=== PATIENT | female | born 1960 | race Caucasian/White ===

== ENCOUNTER 2021-01-04 15:49 | Observation (INO) | payer MEDICAID ==
[~2021-01-04] VITALS: Ht 160 cm; Wt 110.4 kg
[2021-01-04] MEDS ORDERED: IV NORMAL SALINE 1000ML BAG 1,000 ML IV ONE (16:00)
--- NOTE | 2021-01-04 16:25 | PHYS DOC ---
General Adult HPI: HPI: Patient is a 60 year old female who presents with was going to her granddaughters graduation today when they got in the building and had to walk all the way around the building. As they are walking around the building she became very short of breath, lost her color and turned white, lightheaded and almost passed out but did not. She denies chest pain, abdominal pain, nausea, vomiting, diarrhea, dizziness, vision change, new weaknesses, cough, headache. 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 She also has residual right-sided deficit. She also has hypertension. She has factor V. She is on Coumadin. Patient states she is feeling better since her arrival. Review of Systems: Review of Systems: Constitutional: Denies fever or chills. [] Eyes: Denies change in visual acuity. [] HENT: Denies nasal congestion or sore throat. [] Respiratory: Denies cough or +shortness of breath. [] Cardiovascular: Denies chest pain or edema. [] GI: Denies abdominal pain, nausea, vomiting, bloody stools or diarrhea. [] : Denies dysuria. [] Musculoskeletal: Denies back pain or joint pain. [] Integument: Denies rash. [] Neurologic: Denies headache, focal weakness or sensory changes. + Lightheadedness [] Endocrine: Denies polyuria or polydipsia. [] Lymphatic: Denies swollen glands. [] Psychiatric: Denies depression or anxiety. [] Heart Score: C/O Chest Pain: No HEART Score for Chest Pain: HEART Score for Chest Pain Response (Comments) Value History Slighlty/Non-Suspicious 0 ECG Nonspecific Repolarizatio 1 Age >45 - < 65 1 Risk Factors 1 or 2 Risk Factors 1 Troponin < Normal Limit 0 Total 3 Risk Factors: Risk Factors: DM, Current or recent (<one month) smoker, HTN, HLP, family history of CAD, obesity. Risk Scores: Score 0 - 3: 2.5% MACE over next 6 weeks - Discharge Home Score 4 - 6: 20.3% MACE over next 6 weeks - Admit for Clinical Observation Score 7 - 10: 72.7% MACE over next 6 weeks - Early Invasive Strategies Current Medications: Current Medications Medications (Trade) Dose Ordered Sig/Krystle Start Time Stop Time Status Last Admin Dose Admin Sodium Chloride 1,000 ml @ 1,000 mls/hr 1X ONCE 01/04/21 16:00 01/04/21 16:59 UNV Physical Exam: PE: Constitutional: Well developed, well nourished, no acute distress, non-toxic appearance. [] HENT: Normocephalic, atraumatic, bilateral external ears normal, oropharynx moist, no oral exudates, nose normal. [] Eyes: PERRLA, EOMI, conjunctiva normal, no discharge. [] Neck: Normal range of motion, no tenderness, supple, no stridor. [] Cardiovascular:Heart rate regular rhythm, no murmur [] Lungs & Thorax: Bilateral breath sounds clear to auscultation [] Abdomen: Bowel sounds normal, soft, no tenderness, no masses, no pulsatile masses. [] Skin: Warm, dry, no erythema, no rash. [] Back: No tenderness, no CVA tenderness. [] Extremities: No tenderness, no cyanosis, no clubbing, ROM intact, no edema. [] Neurologic: Alert and oriented X 3, normal motor function, normal sensory function, no focal deficits noted. [] Psychologic: Affect normal, judgement normal, mood normal. Normal physical exam [] EKG: EK and read by Dr. Joseph is sinus rhythm and no STEMI Radiology/Procedures: Radiology/Procedures: [] Impression: [facility] [address] [place], [place] [id number] IMAGING REPORT Signed PATIENT: JOSH ARMAS ACCOUNT: [id number] : 1960 LOCATION: ER AGE: 60 SEX: F EXAM STATUS: PRE ER ORD. PHYSICIAN: PRITI NAVAS ASSEMBLER CONVERTIBLE TOP REASON: syncope PROCEDURE: CT HEAD WO CONTRAST Chest AP portable at 1639: Reason for examination: Syncope. The heart size is normal. Mediastinum is unremarkable. Lung baker are clear. No acute bony abnormalities are seen. Impression: No acute cardiopulmonary disease. CT head without contrast: Helical images were obtained through the brain with no contrast administered. Exposure: One or more of the following individualized dose reduction techniques were utilized for this examination: 1. Automated exposure control 2. Adjustment of the mA and/or kV according to patient size 3. Use of iterative reconstruction technique. There are changes consistent with encephalomalacia in the left frontal and left parietal lobe anteriorly. There is some compensatory enlargement of the left lateral ventricular system. There is no midline shift. There is no evidence of intracranial hemorrhage, acute infarct, mass or edema. No abnormalities of seen at the orbits. The paranasal sinuses and mastoid air cells are clear. No acute skull abnormality is seen. IMPRESSION: Encephalomalacia involving the left frontal and anterior parietal lobe. No acute intracranial abnormality evident. Electronically signed by: Jose Medeiros MD (01/04/2021 4:48 PM) [facility] DICTATED and SIGNED BY: JOSE MEDEIROS MD DATE: 01/04/21 [id number] 0 Course & Med Decision Making: Course & Med Decision Making Pertinent Labs and Imaging studies reviewed. (See chart for details) See HPI. Alert and oriented x4. Ambulatory with a steady gait. Speaks in full sentences. Daughter states that the patient is acting normal for her at this time. Lungs are clear all station all lobes. EKG shows a sinus rhythm and no STEMI. Patient states she is feeling better. Patient's NIH is a 5 but it is normal for her. Patient states she is feeling better. Blood work and CT of head and chest x-ray showed no acute findings. Using shared decision making between me, the patient and her daughter patient has decided to stay for observation. Patient admitted to Dr Worthy. [] Jenny Disclaimer: Jenny Disclaimer: This electronic medical record was generated, in whole or in part, using a voice recognition dictation system. NIHSS Stroke Scale NIH Stroke Scale: NIH Stroke Scale Response (Comments) Value Level of Consciousness: 0 Alert/Responsive 0 LOC Questions: 0 Answers both correctly 0 LOC Commands: 0 Performs both tasks 0 Best Gaze: 0 Normal 0 Visual: 0 No visual loss 0 Facial Palsy: 0 Normal, symmetrical 0 Motor - Left Arm 0 No drift 0 Motor - Right Arm 2 Some effort (normal for patient) 2 Motor - Left Leg 0 No drift 0 Motor: Right Leg 1 Drift but can hold 1 Limb Ataxia: 0 Absent 0 Sensory: 0 No loss 0 Best Language: 1 Mild to mod aphasia (normal for patien t) 1 Dysathria: 1 Mild to moderate (normal for patient) 1 Extinction and Inattention: 0 Normal 0 Total 5 Departure Departure Impression: Primary Impression: Near syncope Disposition: ADMITTED INPATIENT Admitting Physician: SARA Condition: STABLE PRITI NAVAS ASSEMBLER CONVERTIBLE TOP January 04, 2021 16:25
[2021-01-04 16:29] LABS: BASO # 0.1 x10^3/uL (0.0-0.2); BASO % 1 % (0-3); EOS # 0.2 x10^3/uL (0.0-0.7); EOS % 3 % (0-3); HEMATOCRIT 36.8 % (36.0-47.0); HEMOGLOBIN 12.7 g/dL (12.0-15.5); LYMPH # 1.5 x10^3/uL (1.0-4.8); LYMPH % 22 % (24-48); MEAN CORPUSCULAR HEMOGLOBIN 31 pg (25-35); MEAN CORPUSCULAR HGB CONC 34 g/dL (31-37); MEAN CORPUSCULAR VOLUME 89 fL (79-100); MONO # 0.5 x10^3/uL (0.0-1.1); MONO % 7 % (0-9); NEUT # 4.5 x10^3/uL (1.8-7.7); NEUT % 67 % (31-73); PLATELET COUNT 164 x10^3/uL (140-400); RED BLOOD COUNT 4.14 x10^6/uL (3.50-5.40); RED CELL DISTRIBUTION WIDTH 14.6 % (11.5-14.5); WHITE BLOOD COUNT 6.6 x10^3/uL (4.0-11.0)
[2021-01-04 16:40] LABS: CALCIUM 8.1 mg/dL (8.5-10.1); GFR 56.9; POTASSIUM 4.2 mmol/L (3.5-5.1)
[2021-01-04 16:46] LABS: ALBUMIN 4.2 g/dL (3.4-5.0); ALBUMIN/GLOBULIN RATIO 1.8 (1.0-1.7); TOTAL BILIRUBIN 0.6 mg/dL (0.2-1.0); TOTAL PROTEIN 6.6 g/dL (6.4-8.2)
--- NOTE | 2021-01-04 16:50 | RAD ---
Chest AP portable at 1639: Reason for examination: Syncope. The heart size is normal. Mediastinum is unremarkable. Lung baker are clear. No acute bony abnormali ties are seen. Impression: No acute cardiopulmonary disease. CT head without contrast: Helical images were obtained through the brain with no contrast administered. Exposure: One or more of the following individualized dose reduction techniques were utilized for thi s examination: 1. Automated exposure control 2. Adjustment of the mA and/or kV according to patient size 3. Use of iterative reconstruction technique. There are changes consistent with encephalomalacia in the left frontal and left parietal lobe anterio rly. There is some compensatory enlargement of the left lateral ventricular system. There is no midli ne shift. There is no evidence of intracranial hemorrhage, acute infarct, mass or edema. No abnormali ties of seen at the orbits. The paranasal sinuses and mastoid air cells are clear. No acute skull abn ormality is seen. IMPRESSION: Encephalomalacia involving the left frontal and anterior parietal lobe. No acute intracranial abnorma lity evident. Electronically signed by: Bernice Isaac MD (01/04/2021 4:48 PM) [facility]
[2021-01-04 18:12] LABS: BILIRUBIN,URINE NEGATIVE (NEG); CLARITY,URINE CLEAR; COLOR,URINE YELLOW; NITRITE,URINE NEGATIVE (NEG); PROTEIN,URINE NEGATIVE (NEG-TRACE); UROBILINOGEN,URINE 0.2 mg/dL (0.2 mg/dL)
[2021-01-04 18:16] LABS: BACTERIA,URINE 0 /HPF (0-FEW); RBC,URINE 0 /HPF (0-2)
--- NOTE | 2021-01-04 19:40 | EKG ---
[facility] [address] [place] [address] Test Date: 2021-01-04 Test Time: 16:01:34 Pat Name: JOSH ARMAS Department: Room: Gender: F Template Clerk: : 1960 Requested By: PRITI NAVAS Order Number: [id number] Reading MD: Measurements Intervals Paicines Rate: 81 P: 66 HI: 154 QRS: 23 QRSD: 84 T: 41 QT: 374 QTc: 435 Interpretive Statements SINUS RHYTHM NORMAL ECG RI6.02 No previous ECG available for comparison
[2021-01-04 20:45] VITALS: BP 196/96
--- NOTE | 2021-01-04 21:00 | NUR ---
Admit from ER via [facility] to [facility] room 261. A/O x 4 on arrival to unit. Stood from [facility] in lan and ambulated to bathroom in room and then to bed with standby assist. Patient has history of CVA at age [age] years old with right arm and right leg deficit. Orientated to room and call light. Reviewed POC to include tele monitoring and out of bed with standby assist. Verbalized understanding. Resting in bed talking to family on her cell phone. Call light at hand.
[2021-01-04] MEDS ORDERED: PREG300C PO (21:14)
[2021-01-04] MEDS ORDERED: WARF2.5T71 PO (21:16)
[2021-01-04] MEDS ORDERED: WARF-31 PO (21:17)
[2021-01-04] MEDS ORDERED: LORA0.5T96 PO (21:21)
[2021-01-04] MEDS ORDERED: SIMV20TA18 PO (21:22)
[2021-01-04] MEDS ORDERED: LOSA-73 PO (21:22)
[2021-01-04] MEDS ORDERED: OMEP40CA45 PO (21:22)
[2021-01-04] MEDS ORDERED: TIZA4TAB8 PO (21:23)
[2021-01-04] MEDS ORDERED: LORazepam 0.5 MG TABLET PO PRN (22:00)
[2021-01-04] MEDS ORDERED: tiZANidine 4 MG TABLET. PO PRN (22:00)
[2021-01-04] MEDS ORDERED: SIMVASTATIN 20 MG TABLET PO SCH (22:00)
[2021-01-04] MEDS ORDERED: LABETALOL 20 MG/4 ML DISP.SYRIN. IVP PRN (22:00)
[2021-01-04 22:45] VITALS: BP 175/72
[2021-01-04] MEDS: PREGABALIN 75 MG CAPSULE PO SCH (23:00)
[2021-01-04 23:30] LABS: PROTHROMBIN TIME PATIENT 20.1 SEC (11.7-14.0)
[2021-01-04] MEDS ORDERED: WARFARIN 5 MG TABLET. PO ONE (23:45)
[2021-01-05 03:20] VITALS: BP 108/52
--- NOTE | 2021-01-05 06:52 | PDOC1 ---
History and Physical Date of Admission Date of Admission DATE: 01/05/21 TIME: 06:35 Identification/Chief Complaint Chief Complaint Near syncope Source Source: Chart review, Patient History of Present Illness History of Present Illness Patient is a 60-year-old female with past medical history CVA secondary to factor V Leiden and residual right-sided deficits, presents to the ED for evaluation of a near syncopal event. Her symptoms occurred yesterday at her granddaughter's graduation, where prior to onset congested on a great deal of walking. She reportedly, turned white, became lightheaded, and almost passed out but did did not lose consciousness. She denies any head injury, chest pain, abdominal pain, nausea, vomiting, diarrhea, dizziness, vision change, or new weaknesses. Upon arrival in the ED, EKG showed normal sinus rhythm. She was admitted overnight for further observation. Past Medical History Past Medical History CVA, factor V Leiden, HTN, HLD, anxiety Past Surgical History Past Surgical History: Appendectomy Family History Family History: Hypertension Current Problem List Problem List Problems Medical Problems: (1) Near syncope Status: Acute Current Medications Current Medications Current Medications Sodium Chloride 1,000 ml @ 1,000 mls/hr 1X ONCE IV Last administered on 01/04/21at 17:08; Start 01/04/21 at 16:00; Stop 01/04/21 at 16:59; Status DC Lorazepam (Ativan) 0.5 mg PRN TID PRN PO ANXIETY / AGITATION; Start 01/04/21 at 22:00 Losartan Potassium (Cozaar) 50 mg DAILY PO ; Start 01/05/21 at 09:00 Simvastatin (Zocor) 20 mg HS PO Last administered on 01/04/21at 23:00; Start 01/04/21 at 22:00 Tizanidine HCl (Zanaflex) 4 mg PRN TID PRN PO MUSCLE SPASMS Last administered on 01/04/21at 23:00; Start 01/04/21 at 22:00 Pantoprazole Sodium (Protonix) 40 mg DAILYAC PO ; Start 01/05/21 at 07:30 Pregabalin (Lyrica) 300 mg BID PO Last administered on 01/04/21at 23:00; Start 01/04/21 at 22:00 Labetalol HCl (Normodyne Iv Push) 10 mg PRN Q2HRS PRN IVP HYPERTENSION; Start 01/04/21 at 22:00 Warfarin Sodium (Coumadin) 2.5 mg DAILY PO ; Start 01/05/21 at 09:00; Stop 01/04/21 at 23:29; Status DC Warfarin Sodium (Coumadin) 5 mg SuMoWeThSa PO ; Start 01/05/21 at 16:00 Warfarin Sodium (Coumadin) 2.5 mg TuFr PO ; Start 01/06/21 at 16:00 Warfarin Sodium (Coumadin) 5 mg 1X WARF ONCE PO Last administered on 01/04/21at 23:46; Start 01/04/21 at 23:45; Stop 01/04/21 at 23:46; Status DC Warfarin Sodium (Coumadin Per Physician) 1 each PRN DAILY PRN MC SEE COMMENTS Last administered on 01/05/21at 02:12; Start 01/04/21 at 23:45 Active Scripts Active Reported Zanaflex (Tizanidine Hcl) 4 Mg Tablet 4 Mg PO TID PRN Losartan Potassium 50 Mg Tablet 50 Mg PO DAILY Simvastatin 20 Mg Tablet 20 Mg PO HS Omeprazole 40 Mg Capsule.dr 40 Mg PO DAILY Ativan (Lorazepam) 0.5 Mg Tablet 0.5 Mg PO TID PRN Warfarin Sodium 5 Mg Tablet 5 Mg PO M, W, TH, SAT, SUN Coumadin 5mg Tuesday, Tuesday, , Tuesday, Tuesday Warfarin Sodium 2.5 Mg Tablet 2.5 Mg PO TUESDAY, TUESDAY Coumadin 2.5 mg Tuesday and Fridays Lyrica (Pregabalin) 300 Mg Capsule 300 Mg PO BID Allergies Allergies: Coded Allergies: No Known Drug Allergies (Unverified , 01/04/21) ROS Review of System GENERAL: No history of weight change, weakness or fevers. SKIN: No bruising, hair changes or rashes. EYES: No blurred, double or loss of vision. NOSE AND THROAT: No history of nosebleeds, hoarseness or sore throat. HEART: Near syncope, lightheadedness. Denies chest pain, denies palpitations. LUNGS: Denies cough, hemoptysis, wheezing or shortness of breath. GASTROINTESTINAL: Denies nausea, vomiting, abdominal pain. GENITOURINARY: Denies dysuria, frequency, urgency, hematuria. NEUROLOGIC: Residual right-sided weakness 3/5. Denies history of numbness, tingling, or tremor. PSYCHIATRIC: Denies anxiety, denies depression. ENDOCRINE: No history of heat or cold intolerance, polyuria or polydipsia. EXTREMITIES: Denies muscle weakness, joint pain, pain on walking or stiffness. Physical Exam Physical Exam General: Alert, Oriented X3, Cooperative, No acute distress HEENT: PERRLA, EOMI Lungs: Clear to auscultation, Normal air movement Heart: RRR, no murmurs Cardiovascular: S1, S2 Abdomen: Normal bowel sounds, Soft, No tenderness Extremities: No clubbing, No cyanosis Skin: No rashes, No significant lesion Neuro: Slurred speech, right-sided weakness. Normal tone, Sensation intact Psych/Mental Status: Mental status NL, Mood NL Vitals Vitals Vital Signs Date Time Temp Pulse Resp B/P (MAP) Pulse Ox O2 Delivery O2 Flow Rate FiO2 01/05/21 03:20 98.0 104 18 108/52 (70) 94 Room Air 98.0 Labs Labs Laboratory Tests Test 01/04/21 16:15 01/04/21 17:56 01/04/21 23:15 White Blood Count 6.6 x10^3/uL (4.0-11.0) Red Blood Count 4.14 x10^6/uL (3.50-5.40) Hemoglobin 12.7 g/dL (12.0-15.5) Hematocrit 36.8 % (36.0-47.0) Mean Corpuscular Volume 89 fL (79-100) Mean Corpuscular Hemoglobin 31 pg (25-35) Mean Corpuscular Hemoglobin Concent 34 g/dL (31-37) Red Cell Distribution Width 14.6 % (11.5-14.5) Platelet Count 164 x10^3/uL (140-400) Neutrophils (%) (Auto) 67 % (31-73) Lymphocytes (%) (Auto) 22 % (24-48) Monocytes (%) (Auto) 7 % (0-9) Eosinophils (%) (Auto) 3 % (0-3) Basophils (%) (Auto) 1 % (0-3) Neutrophils # (Auto) 4.5 x10^3/uL (1.8-7.7) Lymphocytes # (Auto) 1.5 x10^3/uL (1.0-4.8) Monocytes # (Auto) 0.5 x10^3/uL (0.0-1.1) Eosinophils # (Auto) 0.2 x10^3/uL (0.0-0.7) Basophils # (Auto) 0.1 x10^3/uL (0.0-0.2) Sodium Level 144 mmol/L (136-145) Potassium Level 4.2 mmol/L (3.5-5.1) Chloride Level 107 mmol/L (98-107) Carbon Dioxide Level 25 mmol/L (21-32) Anion Gap 12 (6-14) Blood Urea Nitrogen 8 mg/dL (7-20) Creatinine 1.0 mg/dL (0.6-1.0) Estimated GFR (Cockcroft-Gault) 56.9 BUN/Creatinine Ratio 8 (6-20) Glucose Level 90 mg/dL (70-99) Calcium Level 8.1 mg/dL (8.5-10.1) Total Bilirubin 0.6 mg/dL (0.2-1.0) Aspartate Amino Transf (AST/SGOT) 14 U/L (15-37) Alanine Aminotransferase (ALT/SGPT) 20 U/L (14-59) Alkaline Phosphatase 79 U/L (46-116) Troponin I Quantitative < 0.017 ng/mL (0.000-0.055) Total Protein 6.6 g/dL (6.4-8.2) Albumin 4.2 g/dL (3.4-5.0) Albumin/Globulin Ratio 1.8 (1.0-1.7) Urine Collection Type Unknown Urine Color Yellow Urine Clarity Clear Urine pH 6.0 (<5.0-8.0) Urine Specific Orange <=1.005 (1.000-1.030) Urine Protein Negative mg/dL (NEG-TRACE) Urine Glucose (UA) Negative mg/dL (NEG) Urine Ketones (Stick) Negative mg/dL (NEG) Urine Blood Negative (NEG) Urine Nitrite Negative (NEG) Urine Bilirubin Negative (NEG) Urine Urobilinogen Dipstick 0.2 mg/dL (0.2 mg/dL) Urine Leukocyte Esterase Negative (NEG) Urine RBC 0 /HPF (0-2) Urine WBC 1-4 /HPF (0-4) Urine Squamous Epithelial Cells Few /LPF Urine Bacteria 0 /HPF (0-FEW) Urine Mucus Slight /LPF Prothrombin Time 20.1 SEC (11.7-14.0) Prothromb Time International Ratio 1.7 (0.8-1.1) Laboratory Tests Test 01/04/21 16:15 01/04/21 17:56 01/04/21 23:15 White Blood Count 6.6 x10^3/uL (4.0-11.0) Red Blood Count 4.14 x10^6/uL (3.50-5.40) Hemoglobin 12.7 g/dL (12.0-15.5) Hematocrit 36.8 % (36.0-47.0) Mean Corpuscular Volume 89 fL (79-100) Mean Corpuscular Hemoglobin 31 pg (25-35) Mean Corpuscular Hemoglobin Concent 34 g/dL (31-37) Red Cell Distribution Width 14.6 % (11.5-14.5) Platelet Count 164 x10^3/uL (140-400) Neutrophils (%) (Auto) 67 % (31-73) Lymphocytes (%) (Auto) 22 % (24-48) Monocytes (%) (Auto) 7 % (0-9) Eosinophils (%) (Auto) 3 % (0-3) Basophils (%) (Auto) 1 % (0-3) Neutrophils # (Auto) 4.5 x10^3/uL (1.8-7.7) Lymphocytes # (Auto) 1.5 x10^3/uL (1.0-4.8) Monocytes # (Auto) 0.5 x10^3/uL (0.0-1.1) Eosinophils # (Auto) 0.2 x10^3/uL (0.0-0.7) Basophils # (Auto) 0.1 x10^3/uL (0.0-0.2) Sodium Level 144 mmol/L (136-145) Potassium Level 4.2 mmol/L (3.5-5.1) Chloride Level 107 mmol/L (98-107) Carbon Dioxide Level 25 mmol/L (21-32) Anion Gap 12 (6-14) Blood Urea Nitrogen 8 mg/dL (7-20) Creatinine 1.0 mg/dL (0.6-1.0) Estimated GFR (Cockcroft-Gault) 56.9 BUN/Creatinine Ratio 8 (6-20) Glucose Level 90 mg/dL (70-99) Calcium Level 8.1 mg/dL (8.5-10.1) Total Bilirubin 0.6 mg/dL (0.2-1.0) Aspartate Amino Transf (AST/SGOT) 14 U/L (15-37) Alanine Aminotransferase (ALT/SGPT) 20 U/L (14-59) Alkaline Phosphatase 79 U/L (46-116) Troponin I Quantitative < 0.017 ng/mL (0.000-0.055) Total Protein 6.6 g/dL (6.4-8.2) Albumin 4.2 g/dL (3.4-5.0) Albumin/Globulin Ratio 1.8 (1.0-1.7) Urine Collection Type Unknown Urine Color Yellow Urine Clarity Clear Urine pH 6.0 (<5.0-8.0) Urine Specific Orange <=1.005 (1.000-1.030) Urine Protein Negative mg/dL (NEG-TRACE) Urine Glucose (UA) Negative mg/dL (NEG) Urine Ketones (Stick) Negative mg/dL (NEG) Urine Blood Negative (NEG) Urine Nitrite Negative (NEG) Urine Bilirubin Negative (NEG) Urine Urobilinogen Dipstick 0.2 mg/dL (0.2 mg/dL) Urine Leukocyte Esterase Negative (NEG) Urine RBC 0 /HPF (0-2) Urine WBC 1-4 /HPF (0-4) Urine Squamous Epithelial Cells Few /LPF Urine Bacteria 0 /HPF (0-FEW) Urine Mucus Slight /LPF Prothrombin Time 20.1 SEC (11.7-14.0) Prothromb Time International Ratio 1.7 (0.8-1.1) Images Images PORTABLE CHEST 1V Chest AP portable at 1639: Reason for examination: Syncope. The heart size is normal. Mediastinum is unremarkable. Lung baker are clear. No acute bony abnormalities are seen. Impression: No acute cardiopulmonary disease. CT head without contrast: Helical images were obtained through the brain with no contrast administered. Exposure: One or more of the following individualized dose reduction techniques were utilized for this examination: 1. Automated exposure control 2. Adjustment of the mA and/or kV according to patient size 3. Use of iterative reconstruction technique. There are changes consistent with encephalomalacia in the left frontal and left parietal lobe anteriorly. There is some compensatory enlargement of the left lateral ventricular system. There is no midline shift. There is no evidence of intracranial hemorrhage, acute infarct, mass or edema. No abnormalities of seen at the orbits. The paranasal sinuses and mastoid air cells are clear. No acute skull abnormality is seen. IMPRESSION: Encephalomalacia involving the left frontal and anterior parietal lobe. No acute intracranial abnormality evident. CT HEAD WO CONTRAST Chest AP portable at 1639: Reason for examination: Syncope. The heart size is normal. Mediastinum is unremarkable. Lung baker are clear. No acute bony abnormalities are seen. Impression: No acute cardiopulmonary disease. CT head without contrast: Helical images were obtained through the brain with no contrast administered. Exposure: One or more of the following individualized dose reduction techniques were utilized for this examination: 1. Automated exposure control 2. Adjustment of the mA and/or kV according to patient size 3. Use of iterative reconstruction technique. There are changes consistent with encephalomalacia in the left frontal and left parietal lobe anteriorly. There is some compensatory enlargement of the left lateral ventricular system. There is no midline shift. There is no evidence of i ntracranial hemorrhage, acute infarct, mass or edema. No abnormalities of seen at the orbits. The paranasal sinuses and mastoid air cells are clear. No acute skull abnormality is seen. IMPRESSION: Encephalomalacia involving the left frontal and anterior parietal lobe. No acute intracranial abnormality evident. VTE Prophylaxis Ordered VTE Prophylaxis Devices: No VTE Pharmacological Prophylaxi: Yes Assessment/Plan Assessment/Plan Near syncope History factor V Leiden Subtherapeutic INR History of CVA with residual right-sided deficits HTN HLD Plan: Suspect vasovagal syncope in etiology Will obtain echocardiogram and orthostatic vitals; if echocardiogram is within normal limits she may discharge home today. Neurology was consulted by ED and has signed off at this time. Will obtain cardiology consult if any abnormalities on EKG or echocardiogram Given resolution of symptoms anticipate discharge today FEN - Cardiac diet PPX - warfarin DNR Dispo - inpatient for above Advance Care Planning: Total time spent [id number] with patient 17 minutes in discussion with goals of care, comfort care, end-of-life care, pain management, code status; patient names her daughter (Ramila Manzano) as her surrogate decision-maker. Justifications for Admission Other Justification JADA BURGOS MD January 05, 2021 06:52
[2021-01-05 07:00] VITALS: BP 129/61
[2021-01-05] MEDS ORDERED: PANTOPRAZOLE 40 MG TABLET.DR. PO SCH (07:30)
[2021-01-05] MEDS: PREGABALIN 75 MG CAPSULE PO SCH (08:44)
[2021-01-05] MEDS ORDERED: WARFARIN 2.5 MG TABLET. PO SCH (09:00)
[2021-01-05] MEDS ORDERED: LOSARTAN POTASSIUM 50 MG TABLET. PO SCH (09:00)
--- NOTE | 2021-01-05 10:35 | PDOC2 ---
NEUROLOGY CONSULT Date of Service DOS: DATE: 01/05/21 TIME: 10:30 Reason for Consult Reason for Consult: Syncope, history of stroke Referring Physician Referring Physician: Dr. Velasquez Source Source: Chart review, Patient History of Present Illness History of Present Illness The patient is a 60-year-old right-handed female who had a stroke about 30 years ago due to factor V Leiden with residual right hemiparesis and very mild aphasia. She was walking a long distance for her granddaughter's graduation when she felt lightheaded, turned white, and almost passed out, but did not lose consciousness. She feels fine now. She has had no subsequent strokes and there is no history of seizure or head injury. Past Medical History Cardiovascular: HTN, Hyperlipidemia CENTRAL NERVOUS SYSTEM: CVA Heme/Onc: Other (Factor V Leiden deficiency) Psych: Anxiety Past Surgical History Past Surgical History: No pertinent history Family History Family History: Hypertension Social History Social History , no alcohol or tobacco Current Medications Current Medications Current Medications Sodium Chloride 1,000 ml @ 1,000 mls/hr 1X ONCE IV Last administered on 01/04/21at 17:08; Start 01/04/21 at 16:00; Stop 01/04/21 at 16:59; Status DC Lorazepam (Ativan) 0.5 mg PRN TID PRN PO ANXIETY / AGITATION; Start 01/04/21 at 22:00 Losartan Potassium (Cozaar) 50 mg DAILY PO Last administered on 01/05/21at 08:42; Start 01/05/21 at 09:00 Simvastatin (Zocor) 20 mg HS PO Last administered on 01/04/21at 23:00; Start 01/04/21 at 22:00 Tizanidine HCl (Zanaflex) 4 mg PRN TID PRN PO MUSCLE SPASMS Last administered on 01/04/21at 23:00; Start 01/04/21 at 22:00 Pantoprazole Sodium (Protonix) 40 mg DAILYAC PO Last administered on 01/05/21at 08:42; Start 01/05/21 at 07:30 Pregabalin (Lyrica) 300 mg BID PO Last administered on 01/05/21at 08:44; Start 01/04/21 at 22:00 Labetalol HCl (Normodyne Iv Push) 10 mg PRN Q2HRS PRN IVP HYPERTENSION; Start 01/04/21 at 22:00 Warfarin Sodium (Coumadin) 2.5 mg DAILY PO ; Start 01/05/21 at 09:00; Stop 01/04/21 at 23:29; Status DC Warfarin Sodium (Coumadin) 5 mg SuMoWeThSa PO ; Start 01/05/21 at 16:00 Warfarin Sodium (Coumadin) 2.5 mg TuFr PO ; Start 01/06/21 at 16:00 Warfarin Sodium (Coumadin) 5 mg 1X WARF ONCE PO Last administered on 01/04/21at 23:46; Start 01/04/21 at 23:45; Stop 01/04/21 at 23:46; Status DC Warfarin Sodium (Coumadin Per Physician) 1 each PRN DAILY PRN MC SEE COMMENTS Last administered on 01/05/21at 02:12; Start 01/04/21 at 23:45 Active Scripts Active Reported Zanaflex (Tizanidine Hcl) 4 Mg Tablet 4 Mg PO TID PRN Losartan Potassium 50 Mg Tablet 50 Mg PO DAILY Simvastatin 20 Mg Tablet 20 Mg PO HS Omeprazole 40 Mg Capsule.dr 40 Mg PO DAILY Ativan (Lorazepam) 0.5 Mg Tablet 0.5 Mg PO TID PRN Warfarin Sodium 5 Mg Tablet 5 Mg PO M, W, TH, SAT, SUN Coumadin 5mg Tuesday, Tuesday, , Tuesday, Tuesday Warfarin Sodium 2.5 Mg Tablet 2.5 Mg PO TUESDAY, TUESDAY Coumadin 2.5 mg Tuesday and Fridays Lyrica (Pregabalin) 300 Mg Capsule 300 Mg PO BID Allergies Allergies: Coded Allergies: No Known Drug Allergies (Unverified , 01/04/21) ROS Review of System Negative for fever, chills, weight loss, shortness of breath, chest pain, indigestion, hematochezia, melena, and dysuria. Full 14-point review of systems is negative. Physical Exam Physical Examination General: Well-developed, well-nourished white female in no acute distress HEENT: Normocephalic andatraumatic. Temporal arteriespulsatile and nontender. Neck: Supple without bruit, no meningismus Musculoskeletal: Stability:see neurologic. Gait exam:see neurologic. Tone:see neurologic.Strength:see neurologic. Neurological: Mental Status:intact, orientation, memory, attention span/concentration, language, fund of knowledge normal except mild expressive aphasia. Cranial Nerves:Pupils equal and reactive to light, extraocular movements areintact, visual baker are full to confrontation. Facial sensation is normal. There is no facial asymmetry. Vestibulo-ocular reflex is intact. Palate elevates and tongue protrudes in midline. All other cranial related problems are negative except as mentioned before.Reflexes:2+ and symmetric with flexor plantar responses. Motor:4/5 right hemiparesis. Coordination:Finger-nose finger and iokt-rv-[id number] testing are normal. Rapid alternating movements and fine finger movements are intact. Gait:Not tested. Sensory:Normal pinprick, vibration, light touch, proprioception. Vitals VITALS Vital Signs Date Time Temp Pulse Resp B/P (MAP) Pulse Ox O2 Delivery O2 Flow Rate FiO2 01/05/21 08:42 104 108/52 01/05/21 07:00 97.8 18 96 Room Air 97.8 Labs Labs Laboratory Tests Test 01/04/21 16:15 01/04/21 17:56 01/04/21 23:15 White Blood Count 6.6 x10^3/uL (4.0-11.0) Red Blood Count 4.14 x10^6/uL (3.50-5.40) Hemoglobin 12.7 g/dL (12.0-15.5) Hematocrit 36.8 % (36.0-47.0) Mean Corpuscular Volume 89 fL (79-100) Mean Corpuscular Hemoglobin 31 pg (25-35) Mean Corpuscular Hemoglobin Concent 34 g/dL (31-37) Red Cell Distribution Width 14.6 % (11.5-14.5) Platelet Count 164 x10^3/uL (140-400) Neutrophils (%) (Auto) 67 % (31-73) Lymphocytes (%) (Auto) 22 % (24-48) Monocytes (%) (Auto) 7 % (0-9) Eosinophils (%) (Auto) 3 % (0-3) Basophils (%) (Auto) 1 % (0-3) Neutrophils # (Auto) 4.5 x10^3/uL (1.8-7.7) Lymphocytes # (Auto) 1.5 x10^3/uL (1.0-4.8) Monocytes # (Auto) 0.5 x10^3/uL (0.0-1.1) Eosinophils # (Auto) 0.2 x10^3/uL (0.0-0.7) Basophils # (Auto) 0.1 x10^3/uL (0.0-0.2) Sodium Level 144 mmol/L (136-145) Potassium Level 4.2 mmol/L (3.5-5.1) Chloride Level 107 mmol/L (98-107) Carbon Dioxide Level 25 mmol/L (21-32) Anion Gap 12 (6-14) Blood Urea Nitrogen 8 mg/dL (7-20) Creatinine 1.0 mg/dL (0.6-1.0) Estimated GFR (Cockcroft-Gault) 56.9 BUN/Creatinine Ratio 8 (6-20) Glucose Level 90 mg/dL (70-99) Calcium Level 8.1 mg/dL (8.5-10.1) Total Bilirubin 0.6 mg/dL (0.2-1.0) Aspartate Amino Transf (AST/SGOT) 14 U/L (15-37) Alanine Aminotransferase (ALT/SGPT) 20 U/L (14-59) Alkaline Phosphatase 79 U/L (46-116) Troponin I Quantitative < 0.017 ng/mL (0.000-0.055) Total Protein 6.6 g/dL (6.4-8.2) Albumin 4.2 g/dL (3.4-5.0) Albumin/Globulin Ratio 1.8 (1.0-1.7) Urine Collection Type Unknown Urine Color Yellow Urine Clarity Clear Urine pH 6.0 (<5.0-8.0) Urine Specific [place] <=1.005 (1.000-1.030) Urine Protein Negative mg/dL (NEG-TRACE) Urine Glucose (UA) Negative mg/dL (NEG) Urine Ketones (Stick) Negative mg/dL (NEG) Urine Blood Negative (NEG) Urine Nitrite Negative (NEG) Urine Bilirubin Negative (NEG) Urine Urobilinogen Dipstick 0.2 mg/dL (0.2 mg/dL) Urine Leukocyte Esterase Negative (NEG) Urine RBC 0 /HPF (0-2) Urine WBC 1-4 /HPF (0-4) Urine Squamous Epithelial Cells Few /LPF Urine Bacteria 0 /HPF (0-FEW) Urine Mucus Slight /LPF Prothrombin Time 20.1 SEC (11.7-14.0) Prothromb Time International Ratio 1.7 (0.8-1.1) Laboratory Tests Test 01/04/21 16:15 01/04/21 17:56 01/04/21 23:15 White Blood Count 6.6 x10^3/uL (4.0-11.0) Red Blood Count 4.14 x10^6/uL (3.50-5.40) Hemoglobin 12.7 g/dL (12.0-15.5) Hematocrit 36.8 % (36.0-47.0) Mean Corpuscular Volume 89 fL (79-100) Mean Corpuscular Hemoglobin 31 pg (25-35) Mean Corpuscular Hemoglobin Concent 34 g/dL (31-37) Red Cell Distribution Width 14.6 % (11.5-14.5) Platelet Count 164 x10^3/uL (140-400) Neutrophils (%) (Auto) 67 % (31-73) Lymphocytes (%) (Auto) 22 % (24-48) Monocytes (%) (Auto) 7 % (0-9) Eosinophils (%) (Auto) 3 % (0-3) Basophils (%) (Auto) 1 % (0-3) Neutrophils # (Auto) 4.5 x10^3/uL (1.8-7.7) Lymphocytes # (Auto) 1.5 x10^3/uL (1.0-4.8) Monocytes # (Auto) 0.5 x10^3/uL (0.0-1.1) Eosinophils # (Auto) 0.2 x10^3/uL (0.0-0.7) Basophils # (Auto) 0.1 x10^3/uL (0.0-0.2) Sodium Level 144 mmol/L (136-145) Potassium Level 4.2 mmol/L (3.5-5.1) Chloride Level 107 mmol/L (98-107) Carbon Dioxide Level 25 mmol/L (21-32) Anion Gap 12 (6-14) Blood Urea Nitrogen 8 mg/dL (7-20) Creatinine 1.0 mg/dL (0.6-1.0) Estimated GFR (Cockcroft-Gault) 56.9 BUN/Creatinine Ratio 8 (6-20) Glucose Level 90 mg/dL (70-99) Calcium Level 8.1 mg/dL (8.5-10.1) Total Bilirubin 0.6 mg/dL (0.2-1.0) Aspartate Amino Transf (AST/SGOT) 14 U/L (15-37) Alanine Aminotransferase (ALT/SGPT) 20 U/L (14-59) Alkaline Phosphatase 79 U/L (46-116) Troponin I Quantitative < 0.017 ng/mL (0.000-0.055) Total Protein 6.6 g/dL (6.4-8.2) Albumin 4.2 g/dL (3.4-5.0) Albumin/Globulin Ratio 1.8 (1.0-1.7) Urine Collection Type Unknown Urine Color Yellow Urine Clarity Clear Urine pH 6.0 (<5.0-8.0) Urine Specific [place] <=1.005 (1.000-1.030) Urine Protein Negative mg/dL (NEG-TRACE) Urine Glucose (UA) Negative mg/dL (NEG) Urine Ketones (Stick) Negative mg/dL (NEG) Urine Blood Negative (NEG) Urine Nitrite Negative (NEG) Urine Bilirubin Negative (NEG) Urine Urobilinogen Dipstick 0.2 mg/dL (0.2 mg/dL) Urine Leukocyte Esterase Negative (NEG) Urine RBC 0 /HPF (0-2) Urine WBC 1-4 /HPF (0-4) Urine Squamous Epithelial Cells Few /LPF Urine Bacteria 0 /HPF (0-FEW) Urine Mucus Slight /LPF Prothrombin Time 20.1 SEC (11.7-14.0) Prothromb Time International Ratio 1.7 (0.8-1.1) Images Images CT head without contrast: Helical images were obtained through the brain with no contrast administered. Exposure: One or more of the following individualized dose reduction techniques were utilized for this examination: 1. Automated exposure control 2. Adjustment of the mA and/or kV according to patient size 3. Use of iterative reconstruction technique. There are changes consistent with encephalomalacia in the left frontal and left parietal lobe anteriorly. There is some compensatory enlargement of the left lateral ventricular system. There is no midline shift. There is no evidence of intracranial hemorrhage, acute infarct, mass or edema. No abnormalities of seen at the orbits. The paranasal sinuses and mastoid air cells are clear. No acute skull abnormality is seen. IMPRESSION: Encephalomalacia involving the left frontal and anterior parietal lobe. No acute intracranial abnormality evident. Assessment/Plan Assessment/Plan Impression: Old left frontal and anterior parietal lobe stroke Presyncope, she simply walked too far No evidence of new stroke Factor V Leiden deficiency Recommendations: She is feeling fine, okay for discharge I told her not to overdo physical activity Continue warfarin and statin Follow-up with neurology as needed. Thank you for letting me help with the patient's care. SIDNEY TATUM MD January 05, 2021 10:35
[2021-01-05 11:00] VITALS: BP 137/66
--- NOTE | 2021-01-05 11:33 | NUR ---
SS following for discharge planning. SS reviewed pt chart and discussed with pt RN. Pt is from home and is currently on room air. ECHO today. PT recommended home independent. SS will continue to follow for discharge planning.
[2021-01-05] MEDS ORDERED: PERFLUTREN PROTEIN-A MICROSPHR 0.22 MG/ML 3 ML VIAL. IV ONE ×2 (14:52→15:15)
[2021-01-05 15:00] VITALS: BP 156/79
--- NOTE | 2021-01-05 15:12 | PDOC3 ---
Discharge Summary Visit Information Date of Admission: January 05, 2021 Date of Discharge: January 05, 2021 Final Diagnosis Problems Medical Problems: (1) Near syncope Status: Acute Brief Hospital Course Allergies Allergies Coded Allergies Type Severity Reaction Last Updated Verified No Known Drug Allergies 01/04/21 No Vital Signs Vital Signs Date Time Temp Pulse Resp B/P (MAP) Pulse Ox O2 Delivery O2 Flow Rate FiO2 01/05/21 11:00 98.1 79 18 137/66 (89) 97 Room Air 98.1 Lab Results Laboratory Tests Test 01/04/21 16:15 01/04/21 17:56 01/04/21 23:15 White Blood Count 6.6 x10^3/uL (4.0-11.0) Red Blood Count 4.14 x10^6/uL (3.50-5.40) Hemoglobin 12.7 g/dL (12.0-15.5) Hematocrit 36.8 % (36.0-47.0) Mean Corpuscular Volume 89 fL (79-100) Mean Corpuscular Hemoglobin 31 pg (25-35) Mean Corpuscular Hemoglobin Concent 34 g/dL (31-37) Red Cell Distribution Width 14.6 % (11.5-14.5) Platelet Count 164 x10^3/uL (140-400) Neutrophils (%) (Auto) 67 % (31-73) Lymphocytes (%) (Auto) 22 % (24-48) Monocytes (%) (Auto) 7 % (0-9) Eosinophils (%) (Auto) 3 % (0-3) Basophils (%) (Auto) 1 % (0-3) Neutrophils # (Auto) 4.5 x10^3/uL (1.8-7.7) Lymphocytes # (Auto) 1.5 x10^3/uL (1.0-4.8) Monocytes # (Auto) 0.5 x10^3/uL (0.0-1.1) Eosinophils # (Auto) 0.2 x10^3/uL (0.0-0.7) Basophils # (Auto) 0.1 x10^3/uL (0.0-0.2) Sodium Level 144 mmol/L (136-145) Potassium Level 4.2 mmol/L (3.5-5.1) Chloride Level 107 mmol/L (98-107) Carbon Dioxide Level 25 mmol/L (21-32) Anion Gap 12 (6-14) Blood Urea Nitrogen 8 mg/dL (7-20) Creatinine 1.0 mg/dL (0.6-1.0) Estimated GFR (Cockcroft-Gault) 56.9 BUN/Creatinine Ratio 8 (6-20) Glucose Level 90 mg/dL (70-99) Calcium Level 8.1 mg/dL (8.5-10.1) Total Bilirubin 0.6 mg/dL (0.2-1.0) Aspartate Amino Transf (AST/SGOT) 14 U/L (15-37) Alanine Aminotransferase (ALT/SGPT) 20 U/L (14-59) Alkaline Phosphatase 79 U/L (46-116) Troponin I Quantitative < 0.017 ng/mL (0.000-0.055) Total Protein 6.6 g/dL (6.4-8.2) Albumin 4.2 g/dL (3.4-5.0) Albumin/Globulin Ratio 1.8 (1.0-1.7) Urine Collection Type Unknown Urine Color Yellow Urine Clarity Clear Urine pH 6.0 (<5.0-8.0) Urine Specific [place] <=1.005 (1.000-1.030) Urine Protein Negative mg/dL (NEG-TRACE) Urine Glucose (UA) Negative mg/dL (NEG) Urine Ketones (Stick) Negative mg/dL (NEG) Urine Blood Negative (NEG) Urine Nitrite Negative (NEG) Urine Bilirubin Negative (NEG) Urine Urobilinogen Dipstick 0.2 mg/dL (0.2 mg/dL) Urine Leukocyte Esterase Negative (NEG) Urine RBC 0 /HPF (0-2) Urine WBC 1-4 /HPF (0-4) Urine Squamous Epithelial Cells Few /LPF Urine Bacteria 0 /HPF (0-FEW) Urine Mucus Slight /LPF Prothrombin Time 20.1 SEC (11.7-14.0) Prothromb Time International Ratio 1.7 (0.8-1.1) Laboratory Tests Test 01/04/21 16:15 01/04/21 17:56 01/04/21 23:15 White Blood Count 6.6 x10^3/uL (4.0-11.0) Red Blood Count 4.14 x10^6/uL (3.50-5.40) Hemoglobin 12.7 g/dL (12.0-15.5) Hematocrit 36.8 % (36.0-47.0) Mean Corpuscular Volume 89 fL (79-100) Mean Corpuscular Hemoglobin 31 pg (25-35) Mean Corpuscular Hemoglobin Concent 34 g/dL (31-37) Red Cell Distribution Width 14.6 % (11.5-14.5) Platelet Count 164 x10^3/uL (140-400) Neutrophils (%) (Auto) 67 % (31-73) Lymphocytes (%) (Auto) 22 % (24-48) Monocytes (%) (Auto) 7 % (0-9) Eosinophils (%) (Auto) 3 % (0-3) Basophils (%) (Auto) 1 % (0-3) Neutrophils # (Auto) 4.5 x10^3/uL (1.8-7.7) Lymphocytes # (Auto) 1.5 x10^3/uL (1.0-4.8) Monocytes # (Auto) 0.5 x10^3/uL (0.0-1.1) Eosinophils # (Auto) 0.2 x10^3/uL (0.0-0.7) Basophils # (Auto) 0.1 x10^3/uL (0.0-0.2) Sodium Level 144 mmol/L (136-145) Potassium Level 4.2 mmol/L (3.5-5.1) Chloride Level 107 mmol/L (98-107) Carbon Dioxide Level 25 mmol/L (21-32) Anion Gap 12 (6-14) Blood Urea Nitrogen 8 mg/dL (7-20) Creatinine 1.0 mg/dL (0.6-1.0) Estimated GFR (Cockcroft-Gault) 56.9 BUN/Creatinine Ratio 8 (6-20) Glucose Level 90 mg/dL (70-99) Calcium Level 8.1 mg/dL (8.5-10.1) Total Bilirubin 0.6 mg/dL (0.2-1.0) Aspartate Amino Transf (AST/SGOT) 14 U/L (15-37) Alanine Aminotransferase (ALT/SGPT) 20 U/L (14-59) Alkaline Phosphatase 79 U/L (46-116) Troponin I Quantitative < 0.017 ng/mL (0.000-0.055) Total Protein 6.6 g/dL (6.4-8.2) Albumin 4.2 g/dL (3.4-5.0) Albumin/Globulin Ratio 1.8 (1.0-1.7) Urine Collection Type Unknown Urine Color Yellow Urine Clarity Clear Urine pH 6.0 (<5.0-8.0) Urine Specific [place] <=1.005 (1.000-1.030) Urine Protein Negative mg/dL (NEG-TRACE) Urine Glucose (UA) Negative mg/dL (NEG) Urine Ketones (Stick) Negative mg/dL (NEG) Urine Blood Negative (NEG) Urine Nitrite Negative (NEG) Urine Bilirubin Negative (NEG) Urine Urobilinogen Dipstick 0.2 mg/dL (0.2 mg/dL) Urine Leukocyte Esterase Negative (NEG) Urine RBC 0 /HPF (0-2) Urine WBC 1-4 /HPF (0-4) Urine Squamous Epithelial Cells Few /LPF Urine Bacteria 0 /HPF (0-FEW) Urine Mucus Slight /LPF Prothrombin Time 20.1 SEC (11.7-14.0) Prothromb Time International Ratio 1.7 (0.8-1.1) Brief Hospital Course Ms. Pradhan is a 60 old female, with past medical history CVA, who presented with near syncope. Her symptoms occurred the day prior to admission when she had done a great deal of walking outside. She reportedly, turned white, became lightheaded, and almost passed out but did did not lose consciousness. She denies any head injury, chest pain, abdominal pain, nausea, vomiting, diarrhea, dizziness, vision change, or new weaknesses. Due to findings consistent with encephalomalacia involving the left frontal and anterior parietal lobe, consultation placed to neurology. No concerns of new stroke, and patient was stable for discharge home. She had echocardiogram that showed normal LV systolic function, 50-55%, and normal LV segmental wall motion. Recommended she follow-up with her PCP within the next 5-7 days after discharge. Discharge Information Condition at Discharge: Improved Follow Up: Weeks Disposition/Orders: D/C to Home Scheduled Losartan Potassium (Losartan Potassium) 50 Mg Tablet, 50 MG PO DAILY for HYPERTENSION, (Reported) Entered as Reported by: FELICIA VARGAS on 01/04/212121 Last Action: Continued on 01/04/212151 by FELICIA VARGAS Omeprazole (Omeprazole) 40 Mg Capsule.dr, 40 MG PO DAILY for GERD, (Reported) Entered as Reported by: FELICIA VARGAS on 01/04/212121 Last Action: Converted on 01/04/212151 by FELICIA VARGAS Pregabalin (Lyrica) 300 Mg Capsule, 300 MG PO BID for nearve pain, Ref 0 (Reported) Entered as Reported by: FELICIA VARGAS on 01/04/212113 Last Action: Converted on 01/04/212151 by FELICIA VARGAS Simvastatin (Simvastatin) 20 Mg Tablet, 20 MG PO HS for FOR CHOLESTEROL, #30 Ref 0 (Reported) Entered as Reported by: FELICIA VARGAS on 01/04/212121 Last Action: Continued on 01/04/212151 by FELICIA VARGAS Warfarin Sodium (Warfarin Sodium) 2.5 Mg Tablet, 2.5 MG PO Tuesday, Tuesday for blood thinner, (Reported) Coumadin 2.5 mg Tuesday and Fridays Entered as Reported by: FELICIA VARGAS on 01/04/212115 Last Action: Continued on 01/04/212324 by FELICIA VARGAS Warfarin Sodium (Warfarin Sodium) 5 Mg Tablet, 5 MG PO M, W, Th, Tue, Sun for blood thinner, #30 (Reported) Coumadin 5mg Tuesday, Tuesday, , Tuesday, Tuesday Entered as Reported by: FELICIA VARGAS on 01/04/212116 Last Action: Continued on 01/04/212324 by FELICIA VARGAS Scheduled PRN Lorazepam (Ativan) 0.5 Mg Tablet, 0.5 MG PO TID PRN for ANXIETY / AGITATION, (Reported) Entered as Reported by: FELICIA VARGAS on 01/04/212120 Last Action: Continued on 01/04/212151 by FELICIA VARGAS Tizanidine Hcl (Zanaflex) 4 Mg Tablet, 4 MG PO TID PRN for MUSCLE SPASMS, (Reported) Entered as Reported by: FELICIA VARGAS on 01/04/212122 Last Action: Continued on 01/04/212151 by FELICIA J VARGAS Justicifation of Admission Dx: Justifications for Admission: Justification of Admission Dx: Yes JADA BURGOS MD January 05, 2021 15:12
[2021-01-05] MEDS ORDERED: WARFARIN 5 MG TABLET. PO SCH (16:00)
--- NOTE | 2021-01-05 16:39 | NUR ---
Discharge Note: [facility] Discharge instructions and discharge home medications reviewed with Patient and a copy given. All questions have been answered and understanding verbalized. The following instructions and handouts were given: DISCHARGE INSTRUCTIONS, SYNCOPE EDUCATION, FOLLOW UP INSTRUCTIONS Discontinued lines and drains: Peripheral IV intact. Patient discharged to Home or Self Care with Family Member via Wheelchair
--- NOTE | 2021-01-05 17:01 | CARD ---
MR#: [id number] Date of Study: 01/05/2021 Ordering Physician: JADA BURGOS, Referring Physician: JADA BURGOS, Tech: Belia Nugent SAM APPROVED REPORT EXAM: Two-dimensional and M-mode echocardiogram with Doppler and color Doppler. Other Information Quality : Technically LimitedHR: 71bpm Rhythm : NSR INDICATION CVA/TIA Chest Pain Echo Enhancing Agent Indication: Endocardial border delineation Agent/Amount Used: Optison 3mL RISK FACTORS Hypertension Obesity Smoking 2D DIMENSIONS RVDd2.4 (2.9-3.5cm)Left Atrium(2D)3.2 (1.6-4.0cm) IVSd1.0 (0.7-1.1cm)Aortic Root(2D)2.9 (2.0-3.7cm) LVDd5.1 (3.9-5.9cm)LVOT Diameter2.1 (1.8-2.4cm) PWd1.1 (0.7-1.1cm)LVDs3.3 (2.5-4.0cm) FS (%) 34.9 %SV77.4 ml LVEF(%)63.9 (>50%) Aortic Valve AoV Peak Osiel.157.3cm/sAoV VTI34.3cm AO Peak GR.9.9mmHgLVOT Peak Osiel.96.0cm/s AO Mean GR.5mmHgAVA (VMAX)2.21cm2 Mitral Valve MV E Omfmunrd06.0cm/sMV DECEL [id number] MV A Ktxfqahe13.7cm/sE/A Ratio0.9 Tricuspid Valve TR P. [id number]/sTR Peak Gr.20mmHg LEFT VENTRICLE The left ventricle is normal size. There is normal left ventricular wall thickness. The left ventricu lar systolic function is normal and the ejection fraction is within normal range. Estimated ejection fraction 50-55%. There is normal LV segmental wall motion. Tissue Doppler imaging reveals moderate le ft ventricular diastolic dysfunction. RIGHT VENTRICLE The right ventricle is normal size. There is normal right ventricular wall thickness. The right ventr icular systolic function is normal. ATRIA The left atrium size is normal. The right atrium size is normal. The interatrial septum is intact wit h no evidence for an atrial septal defect or patent foramen ovale as noted on 2-D or Doppler imaging. AORTIC VALVE The aortic valve is normal in structure and function. Doppler and Color Flow revealed no significant aortic regurgitation. There is no significant aortic valvular stenosis. MITRAL VALVE The mitral valve is normal in structure and function. There is no evidence of mitral valve prolapse. There is no mitral valve stenosis. Doppler and Color Flow revealed no mitral valve regurgitation note d. TRICUSPID VALVE The tricuspid valve is normal in structure and function. Doppler and Color Flow revealed no tricuspid valve regurgitation noted. There is no tricuspid valve stenosis. PULMONIC VALVE Doppler and Color Flow revealed no pulmonic valvular regurgitation. There is no pulmonic valvular akhil nosis. GREAT VESSELS The aortic root is normal in size. The ascending aorta is normal in size. The IVC is normal in size a nd collapses >50% with inspiration. PERICARDIAL EFFUSION There is no evidence of significant pericardial effusion. Critical Notification Critical Value: No <Conclusion> The left ventricular systolic function is normal and the ejection fraction is within normal range. E stimated ejection fraction 50-55%. There is normal LV segmental wall motion. Signed by : Shalom Chambers, Electronically Approved : 01/05/2021 17:00:23
[2021-01-06] MEDS ORDERED: WARFARIN 2.5 MG TABLET. PO SCH (16:00)
== END 2021-01-05 16:41 | disposition home or self-care (01) ==
LOC: ER 15:49 → 2 SOUTH 20:09
PROVIDERS: ADMIT Internal Medicine; ATTEND Internal Medicine
DX: R55 Syncope and collapse (principal); G81.91 Hemiplegia, unspecified affecting right dominant side; I10 Essential (primary) hypertension; E78.5 Hyperlipidemia, unspecified; D68.51 Activated protein C resistance; G93.89 Other specified disorders of brain; I69.30 Unspecified sequelae of cerebral infarction; Z79.01 Long term (current) use of anticoagulants
CPT/HCPCS: 36415; 70450; 71045; 80053; 81001; 84484; 85025; 85610; 93005; 93306; 96360; 97116; 97161; 97165; 99285; G0378; J7030; Q9956; G0379